=== PATIENT | male | born 1935 | race Asian ===

== ENCOUNTER 2024-05-11 13:29 | Inpatient (IN) | payer OTHER, MEDICARE ==
[~2024-05-11] VITALS: Ht 167.6 cm; Wt 64.0 kg
[2024-05-11 13:36] VITALS: PULSE 51; RESP 22; TEMP 98.3; O2SAT 100
[2024-05-11 14:29] LABS: BASOPHILS % (AUTO) 0.9 % (0.0-2.0); EOSINOPHILS # (AUTO) 0.1 K/uL (0.0-0.4); EOSINOPHILS % (AUTO) 1.9 % (0.0-4.0); HEMATOCRIT 30.6 % (36-54); HEMOGLOBIN 10.9 g/dL (14.0-18.0); LYMPHOCYTES # (AUTO) 0.5 K/uL (1.0-5.5); LYMPHOCYTES % (AUTO) 11.1 % (20.5-51.5); MEAN CORPUSCULAR HEMOGLOBIN 31 pg (27-31); MEAN CORPUSCULAR HGB CONC 36 % (32-36); MEAN CORPUSCULAR VOLUME 87 fL (79.0-98.0); MONOCYTES # (AUTO) 0.5 K/uL (0.0-1.0); MONOCYTES % (AUTO) 11.7 % (1.7-9.3); NEUTROPHILS % (AUTO) 74.4 % (40.0-70.0); PLATELET COUNT (AUTO) 145 K/uL (130-430); RED BLOOD CELL COUNT(AUTO) 3.52 MIL/uL (4.2-6.2); WHITE BLOOD COUNT (AUTO) 4.1 K/uL (4.8-10.8)
[2024-05-11 14:44] LABS: ALANINE AMINOTRANSFERASE 27 U/L (12-78); ALBUMIN 3.1 g/dL (3.4-4.8); ANION GAP 6 (5-15); ASPARTATE AMINOTRANSFERASE 37 U/L (10-37); BILIRUBIN,DIRECT 0.1 mg/dL (0.0-0.3); CALCIUM 8.2 mg/dL (8.4-11.0); CARBON DIOXIDE 28 mmol/L (23-29); CHLORIDE 91 mmol/L (98-107); CREATININE 1.48 mg/dL (0.55-1.30); GLUCOSE 180 mg/dL (74-106); LIPASE 46 U/L (16-77); POTASSIUM 3.7 mmol/L (3.5-5.1); SODIUM SERUM 125 mmol/L (136-145); TOTAL BILIRUBIN 0.3 mg/dL (0.0-1.0); UREA NITROGEN, BLOOD 32 mg/dL (8-21)
[2024-05-11 15:07] LABS: INR 1.1 (0.80-1.20)
[2024-05-11] MEDS: NS 1000 ML IV.SOLN IV ONE (15:39)
[2024-05-11 16:09] LABS: BILIRUBIN,URINE NEGATIVE (NEGATIVE); BLOOD, URINE NEGATIVE (NEGATIVE); CLARITY/URINE CLEAR (CLEAR); COLOR,URINE YELLOW (YELLOW); GLUCOSE,URINE NEGATIVE (NEGATIVE); KETONES,URINE NEGATIVE (NEGATIVE); LEUKOCYTE ESTERASE ,URINE NEGATIVE (NEGATIVE); NITRITE, URINE NEGATIVE (NEGATIVE); PROTEIN URINE NEGATIVE (NEGATIVE); UROBILINOGEN,URINE 0.2 (0.2-1.0)
[2024-05-11] MEDS ORDERED: LORazepam 2 MG/ML VIAL IVP PRN (16:30)
[2024-05-11] MEDS ORDERED: MUPIROCIN 2% TOPICAL OINTMENT 22 GM NS PRN ×2 (16:30→20:00)
[2024-05-11] MEDS ORDERED: MORPHINE 2 MG/ML INJ. SYRINGE IVP PRN ×2 (16:30)
[2024-05-11] MEDS ORDERED: DOCUSATE SODIUM 100 MG CAPSULE PO PRN (16:30)
[2024-05-11] MEDS ORDERED: ZOLPIDEM TARTRATE 5 MG TABLET PO PRN (16:30)
[2024-05-11] MEDS ORDERED: ACETAMINOPHEN 500 MG TABLET PO PRN ×3 (16:30)
[2024-05-11] MEDS ORDERED: MAGNESIUM SULFATE 50 ML IV PRN (16:30)
[2024-05-11] MEDS ORDERED: POTASSIUM CHLORIDE 20 MEQ TABLET.ER PO PRN (16:30)
[2024-05-11] MEDS: D5NS 1,000 ML IV SCH (23:14)
[2024-05-11] MEDS ORDERED: HEPARIN SODIUM,PORCINE 5,000 UNITS/ML VIAL ONE (23:24)
[2024-05-11] MEDS: HEPARIN SODIUM,PORCINE 5,000 UNITS/ML VIAL SUBCUT SCH (23:27)
[2024-05-12] VITALS (7 sets, daily range): BP systolic 136–159; PULSE 55–81; RESP 16–18; TEMP 97.5–98.2; O2SAT 100
[2024-05-12] MEDS: HEPARIN SODIUM,PORCINE 5,000 UNITS/ML VIAL SUBCUT SCH (09:00)
[2024-05-12] MEDS ORDERED: DEXTROSE 50% JECT 50 ML DISP.SYRIN IVP PRN (10:00)
[2024-05-12 10:10] LABS: BASOPHILS % (AUTO) 0.7 % (0.0-2.0); EOSINOPHILS # (AUTO) 0.2 K/uL (0.0-0.4); EOSINOPHILS % (AUTO) 4.7 % (0.0-4.0); HEMOGLOBIN 12.7 g/dL (14.0-18.0); LYMPHOCYTES # (AUTO) 0.6 K/uL (1.0-5.5); LYMPHOCYTES % (AUTO) 11.5 % (20.5-51.5); MEAN CORPUSCULAR HEMOGLOBIN 30 pg (27-31); MEAN CORPUSCULAR HGB CONC 34 % (32-36); MEAN CORPUSCULAR VOLUME 88 fL (79.0-98.0); MONOCYTES # (AUTO) 0.7 K/uL (0.0-1.0); NEUTROPHILS # (AUTO) 3.4 K/uL (1.8-7.7); NEUTROPHILS % (AUTO) 69.1 % (40.0-70.0); PLATELET COUNT (AUTO) 174 K/uL (130-430); RED BLOOD CELL COUNT(AUTO) 4.22 MIL/uL (4.2-6.2); WHITE BLOOD COUNT (AUTO) 4.9 K/uL (4.8-10.8)
[2024-05-12 10:32] LABS: ALANINE AMINOTRANSFERASE 31 U/L (12-78); ALBUMIN 3.1 g/dL (3.4-4.8); ANION GAP 7 (5-15); ASPARTATE AMINOTRANSFERASE 42 U/L (10-37); CALCIUM 8.4 mg/dL (8.4-11.0); CARBON DIOXIDE 28 mmol/L (23-29); CHLORIDE 99 mmol/L (98-107); CREATININE 0.92 mg/dL (0.55-1.30); GLUCOSE 142 mg/dL (74-106); POTASSIUM 3.5 mmol/L (3.5-5.1); SODIUM SERUM 134 mmol/L (136-145); THYROID STIMULATING HORMONE 0.83 uIu/mL (0.34-4.82); TOTAL BILIRUBIN 0.4 mg/dL (0.0-1.0); TOTAL PROTEIN, SERUM 6.1 g/dL (6.4-8.3); UREA NITROGEN, BLOOD 16 mg/dL (8-21)
[2024-05-12] MEDS: GOLYTELY / COLYTE SOLUTION 4 LITERS PO ONE (11:39)
[2024-05-12] MEDS: BISACODYL 5 MG TABLET.DR (DULCOLAX) PO ONE (18:18)
[2024-05-12] MEDS: INSULIN LISPRO SLIDING SCALE 100 UNITS/ML, 3 ML VIAL (humaLOG) SUBCUT PRN (18:53)
[2024-05-13] VITALS: BP_SYST 121; PULSE 72; RESP 18; TEMP 97.6; O2SAT 100
[2024-05-13] MEDS: ONDANSETRON HCL 4 MG/2 ML VIAL IVP PRN (03:59)
[2024-05-13] MEDS: ONDANSETRON HCL 4 MG/2 ML VIAL ONE (04:02)
[2024-05-13 05:45] LABS: BASOPHILS % (AUTO) 0.3 % (0.0-2.0); EOSINOPHILS % (AUTO) 0.2 % (0.0-4.0); HEMATOCRIT 40.2 % (36-54); HEMOGLOBIN 13.8 g/dL (14.0-18.0); LYMPHOCYTES # (AUTO) 0.5 K/uL (1.0-5.5); LYMPHOCYTES % (AUTO) 4.1 % (20.5-51.5); MEAN CORPUSCULAR HEMOGLOBIN 30 pg (27-31); MEAN CORPUSCULAR HGB CONC 34 % (32-36); MEAN CORPUSCULAR VOLUME 88 fL (79.0-98.0); MONOCYTES # (AUTO) 0.5 K/uL (0.0-1.0); MONOCYTES % (AUTO) 4.4 % (1.7-9.3); NEUTROPHILS # (AUTO) 11.1 K/uL (1.8-7.7); PLATELET COUNT (AUTO) 239 K/uL (130-430); RED BLOOD CELL COUNT(AUTO) 4.56 MIL/uL (4.2-6.2); RED CELL DISTRIBUTION WIDTH 13.1 % (9.0-15.0); WHITE BLOOD COUNT (AUTO) 12.2 K/uL (4.8-10.8)
[2024-05-13 06:01] LABS: INR 1.1 (0.80-1.20); PROTHROMBIN TIME 10.9 SECS (9.5-12.5)
[2024-05-13 06:39] LABS: ALANINE AMINOTRANSFERASE 30 U/L (12-78); ALBUMIN 3.4 g/dL (3.4-4.8); ANION GAP 11 (5-15); ASPARTATE AMINOTRANSFERASE 45 U/L (10-37); CALCIUM 8.8 mg/dL (8.4-11.0); CARBON DIOXIDE 25 mmol/L (23-29); CHLORIDE 96 mmol/L (98-107); CREATININE 1.09 mg/dL (0.55-1.30); GLUCOSE 162 mg/dL (74-106); SODIUM SERUM 132 mmol/L (136-145); TOTAL BILIRUBIN 0.9 mg/dL (0.0-1.0); TOTAL PROTEIN, SERUM 6.5 g/dL (6.4-8.3); UREA NITROGEN, BLOOD 14 mg/dL (8-21)
[2024-05-13 08:04] VITALS: O2SAT 100
[2024-05-13] MEDS: POTASSIUM CHLORIDE 20 MEQ TABLET.ER PO ONE (09:53)
[2024-05-13] MEDS: MAGNESIUM SULFATE 50 ML IV ONE (10:04)
[2024-05-13 11:52] VITALS: BP_SYST 108; PULSE 51; RESP 16; TEMP 97.7; O2SAT 97
[2024-05-13] MEDS: METOCLOPRAMIDE HCL 10 MG/2 ML VIAL IVP ONE (16:44)
[2024-05-13] MEDS: KCL 20 mEq in 100 mL (PREMIX) 100 ML IV ONE (16:45)
[2024-05-13] MEDS: BISACODYL 5 MG TABLET.DR (DULCOLAX) PO ONE (17:49)
[2024-05-13] MEDS ORDERED: GOLYTELY / COLYTE SOLUTION 4 LITERS PO ONE (18:00)
[2024-05-13 18:37] VITALS: BP_SYST 115; PULSE 57; RESP 17; TEMP 98.4; O2SAT 97
[2024-05-13 18:50] LABS: ANION GAP 10 (5-15); CALCIUM 8.5 mg/dL (8.4-11.0); CARBON DIOXIDE 26 mmol/L (23-29); CHLORIDE 96 mmol/L (98-107); CREATININE 1.68 mg/dL (0.55-1.30); GLUCOSE 113 mg/dL (74-106); POTASSIUM 3.9 mmol/L (3.5-5.1); SODIUM SERUM 132 mmol/L (136-145); UREA NITROGEN, BLOOD 27 mg/dL (8-21)
[2024-05-13 18:52] LABS: HEMATOCRIT 44.7 % (36-54); HEMOGLOBIN 15.2 g/dL (14.0-18.0); MEAN CORPUSCULAR HEMOGLOBIN 30 pg (27-31); MEAN CORPUSCULAR HGB CONC 34 % (32-36); MEAN CORPUSCULAR VOLUME 88 fL (79.0-98.0); PLATELET COUNT (AUTO) 236 K/uL (130-430); RED BLOOD CELL COUNT(AUTO) 5.08 MIL/uL (4.2-6.2); RED CELL DISTRIBUTION WIDTH 13.3 % (9.0-15.0); WHITE BLOOD COUNT (AUTO) 14.8 K/uL (4.8-10.8)
[2024-05-13] MEDS: PANTOPRAZOLE SODIUM 40 MG/VIAL (PROTONIX) IVP ONE (19:03)
[2024-05-13 19:28] LABS: BAND % (MANUAL) 25 % (0-6); BASOPHILS % (MANUAL) 0 % (0-2); EOSINOPHILS % (MANUAL) 0 % (0-7); LYMPHOCYTES % (MANUAL) 6 % (20-46); MONOCYTES % (MANUAL) 4 % (0-11); PLATELET ESTIMATE ADEQUATE (ADEQUATE)
[2024-05-13] MEDS ORDERED: CEFEPIME 1 GM in D5W 50 ML IV SCH (19:45)
[2024-05-13 19:58] LABS: HEMOGLOBIN 13.9 g/dL (14.0-18.0); LYMPHOCYTES # (AUTO) 0.3 K/uL (1.0-5.5); LYMPHOCYTES % (AUTO) 2.4 % (20.5-51.5); MEAN CORPUSCULAR HEMOGLOBIN 30 pg (27-31); MEAN CORPUSCULAR HGB CONC 35 % (32-36); MEAN CORPUSCULAR VOLUME 88 fL (79.0-98.0); MONOCYTES # (AUTO) 1.1 K/uL (0.0-1.0); MONOCYTES % (AUTO) 9.3 % (1.7-9.3); NEUTROPHILS # (AUTO) 10.1 K/uL (1.8-7.7); NEUTROPHILS % (AUTO) 88.3 % (40.0-70.0); PLATELET COUNT (AUTO) 179 K/uL (130-430); RED BLOOD CELL COUNT(AUTO) 4.57 MIL/uL (4.2-6.2); RED CELL DISTRIBUTION WIDTH 13.3 % (9.0-15.0); WHITE BLOOD COUNT (AUTO) 11.4 K/uL (4.8-10.8)
[2024-05-13 20:00] VITALS: O2SAT 100
[2024-05-13 20:15] VITALS: BP_SYST 140; PULSE 60; RESP 16; TEMP 100.4
[2024-05-13 20:28] LABS: ANION GAP 9 (5-15); CALCIUM 8.3 mg/dL (8.4-11.0); CARBON DIOXIDE 27 mmol/L (23-29); CHLORIDE 99 mmol/L (98-107); CREATININE 1.59 mg/dL (0.55-1.30); GLUCOSE 135 mg/dL (74-106); SODIUM SERUM 135 mmol/L (136-145); UREA NITROGEN, BLOOD 27 mg/dL (8-21)
[2024-05-13] MEDS ORDERED: CEFEPIME 2 GM in D5W 100 ML IV SCH (21:00)
[2024-05-13] MEDS: METOCLOPRAMIDE HCL 10 MG/2 ML VIAL IVP SCH (22:50)
[2024-05-13] MEDS: CEFEPIME 1 GM in D5W 50 ML IV SCH (22:50)
[2024-05-13] MEDS: PANTOPRAZOLE SODIUM 40 MG/VIAL (PROTONIX) IVP SCH (22:51)
[2024-05-14] VITALS: BP_SYST 106; PULSE 60; RESP 18; TEMP 101.4; O2SAT 97
[2024-05-14] MEDS: ACETAMINOPHEN I.V. 1000 MG 100 ML IV ONE ×2 (01:57→02:08)
[2024-05-14 05:32] LABS: BASOPHILS % (AUTO) 0.1 % (0.0-2.0); HEMATOCRIT 37.3 % (36-54); HEMOGLOBIN 12.8 g/dL (14.0-18.0); LYMPHOCYTES # (AUTO) 0.5 K/uL (1.0-5.5); LYMPHOCYTES % (AUTO) 5.1 % (20.5-51.5); MEAN CORPUSCULAR HEMOGLOBIN 30 pg (27-31); MEAN CORPUSCULAR HGB CONC 34 % (32-36); MEAN CORPUSCULAR VOLUME 88 fL (79.0-98.0); MONOCYTES # (AUTO) 1.2 K/uL (0.0-1.0); MONOCYTES % (AUTO) 12.3 % (1.7-9.3); NEUTROPHILS # (AUTO) 8.1 K/uL (1.8-7.7); NEUTROPHILS % (AUTO) 82.5 % (40.0-70.0); PLATELET COUNT (AUTO) 179 K/uL (130-430); RED BLOOD CELL COUNT(AUTO) 4.23 MIL/uL (4.2-6.2); RED CELL DISTRIBUTION WIDTH 13.4 % (9.0-15.0); WHITE BLOOD COUNT (AUTO) 9.9 K/uL (4.8-10.8)
[2024-05-14 05:46] LABS: INR 1.2 (0.80-1.20); PROTHROMBIN TIME 12.1 SECS (9.5-12.5)
[2024-05-14 06:02] LABS: ANION GAP 11 (5-15); CARBON DIOXIDE 25 mmol/L (23-29); CHLORIDE 100 mmol/L (98-107); CREATININE 1.54 mg/dL (0.55-1.30); GLUCOSE 133 mg/dL (74-106); SODIUM SERUM 136 mmol/L (136-145); UREA NITROGEN, BLOOD 28 mg/dL (8-21)
[2024-05-14 08:46] VITALS: BP_SYST 139; PULSE 50; RESP 16; TEMP 98.2; O2SAT 94
[2024-05-14 08:48] VITALS: O2SAT 94
[2024-05-14] MEDS: KCL 20 mEq in 100 mL (PREMIX) 100 ML IV ONE (09:15)
[2024-05-14 12:45] VITALS: BP_SYST 140; PULSE 52; RESP 16; TEMP 97.8; O2SAT 97
[2024-05-14] MEDS: BISACODYL 5 MG TABLET.DR (DULCOLAX) PO ONE (16:13)
[2024-05-14 16:40] VITALS: BP_SYST 145; PULSE 59; RESP 16; TEMP 98.6; O2SAT 98
[2024-05-14] MEDS: GOLYTELY / COLYTE SOLUTION 4 LITERS PO ONE (18:04)
[2024-05-14 20:00] VITALS: O2SAT 98
[2024-05-15 01:22] VITALS: BP_SYST 133; PULSE 60; RESP 17; TEMP 97.1; O2SAT 96
[2024-05-15 05:41] LABS: BASOPHILS % (AUTO) 0.2 % (0.0-2.0); EOSINOPHILS % (AUTO) 0.1 % (0.0-4.0); HEMATOCRIT 38.1 % (36-54); LYMPHOCYTES # (AUTO) 0.6 K/uL (1.0-5.5); LYMPHOCYTES % (AUTO) 7.4 % (20.5-51.5); MEAN CORPUSCULAR HEMOGLOBIN 30 pg (27-31); MEAN CORPUSCULAR HGB CONC 34 % (32-36); MEAN CORPUSCULAR VOLUME 89 fL (79.0-98.0); MONOCYTES % (AUTO) 12.4 % (1.7-9.3); NEUTROPHILS # (AUTO) 6.7 K/uL (1.8-7.7); NEUTROPHILS % (AUTO) 79.9 % (40.0-70.0); PLATELET COUNT (AUTO) 148 K/uL (130-430); RED BLOOD CELL COUNT(AUTO) 4.29 MIL/uL (4.2-6.2); RED CELL DISTRIBUTION WIDTH 13.4 % (9.0-15.0); WHITE BLOOD COUNT (AUTO) 8.4 K/uL (4.8-10.8)
[2024-05-15 06:00] LABS: PROTHROMBIN TIME 10.7 SECS (9.5-12.5)
[2024-05-15 06:08] LABS: ANION GAP 8 (5-15); CARBON DIOXIDE 28 mmol/L (23-29); CHLORIDE 100 mmol/L (98-107); CREATININE 1.02 mg/dL (0.55-1.30); GLUCOSE 121 mg/dL (74-106); SODIUM SERUM 136 mmol/L (136-145); UREA NITROGEN, BLOOD 20 mg/dL (8-21)
[2024-05-15 06:30] LABS: POTASSIUM 2.1 mmol/L (3.5-5.1)
[2024-05-15 08:19] VITALS: BP_SYST 155; PULSE 62; RESP 16; TEMP 97.6; O2SAT 98
[2024-05-15] MEDS: KCL 20 mEq in 100 mL (PREMIX) 200 ML IV ONE (08:38)
[2024-05-15 11:40] VITALS: BP_SYST 142; PULSE 65; RESP 18; TEMP 98.2; O2SAT 99
[2024-05-15] MEDS: GOLYTELY / COLYTE SOLUTION 4 LITERS PO ONE (11:41)
[2024-05-15] MEDS ORDERED: hydrALAZINE HCL 20 MG/ML VIAL IVP PRN (13:30)
[2024-05-15] MEDS: POTASSIUM CHLORIDE 60 MEQ in NS 500 ML IV ONE (14:21)
[2024-05-15 15:45] VITALS: BP_SYST 151; PULSE 60; RESP 18; TEMP 99; O2SAT 96
[2024-05-15 19:00] VITALS: O2SAT 95
[2024-05-15 22:00] VITALS: BP_SYST 140; PULSE 70; RESP 17; TEMP 98.2; O2SAT 95
[2024-05-15] MEDS: HEPARIN SODIUM,PORCINE 5,000 UNITS/ML VIAL SUBCUT SCH (22:15)
[2024-05-16 04:00] VITALS: BP_SYST 151; PULSE 70; RESP 23; TEMP 98.3; O2SAT 97
[2024-05-16 06:56] LABS: BASOPHILS % (AUTO) 0.4 % (0.0-2.0); EOSINOPHILS # (AUTO) 0.3 K/uL (0.0-0.4); EOSINOPHILS % (AUTO) 3.4 % (0.0-4.0); HEMATOCRIT 34.3 % (36-54); HEMOGLOBIN 11.8 g/dL (14.0-18.0); LYMPHOCYTES # (AUTO) 0.6 K/uL (1.0-5.5); LYMPHOCYTES % (AUTO) 7.8 % (20.5-51.5); MEAN CORPUSCULAR HEMOGLOBIN 30 pg (27-31); MEAN CORPUSCULAR HGB CONC 34 % (32-36); MEAN CORPUSCULAR VOLUME 88 fL (79.0-98.0); MONOCYTES # (AUTO) 0.9 K/uL (0.0-1.0); MONOCYTES % (AUTO) 11.2 % (1.7-9.3); NEUTROPHILS # (AUTO) 6.1 K/uL (1.8-7.7); NEUTROPHILS % (AUTO) 77.2 % (40.0-70.0); PLATELET COUNT (AUTO) 120 K/uL (130-430); RED BLOOD CELL COUNT(AUTO) 3.89 MIL/uL (4.2-6.2); WHITE BLOOD COUNT (AUTO) 7.9 K/uL (4.8-10.8)
[2024-05-16 07:06] LABS: ANION GAP 6 (5-15); CARBON DIOXIDE 28 mmol/L (23-29); CHLORIDE 102 mmol/L (98-107); GLUCOSE 140 mg/dL (74-106); SODIUM SERUM 136 mmol/L (136-145); UREA NITROGEN, BLOOD 10 mg/dL (8-21)
[2024-05-16 07:08] LABS: POTASSIUM 2.8 mmol/L (3.5-5.1)
[2024-05-16 08:07] VITALS: BP_SYST 151; PULSE 72; RESP 18; TEMP 98; O2SAT 100
[2024-05-16 11:04] VITALS: BP_SYST 149; PULSE 79; RESP 18; TEMP 97.7; O2SAT 98
[2024-05-16] MEDS: POTASSIUM CHLORIDE 40 MEQ, LIDOCAINE JECT 2% PF 100 MG 75 MG in NS 250 ML IV ONE (12:06)
[2024-05-16 16:06] VITALS: BP_SYST 144; PULSE 79; RESP 17; TEMP 97.5; O2SAT 98
[2024-05-16 20:00] VITALS: BP_SYST 138; PULSE 75; RESP 18; TEMP 97.5; O2SAT 96
[2024-05-17 01:00] VITALS: BP_SYST 141; PULSE 75; RESP 20; TEMP 98.3; O2SAT 95
[2024-05-17 06:44] LABS: BASOPHILS % (AUTO) 0.3 % (0.0-2.0); EOSINOPHILS # (AUTO) 0.2 K/uL (0.0-0.4); EOSINOPHILS % (AUTO) 3.1 % (0.0-4.0); HEMATOCRIT 34.2 % (36-54); HEMOGLOBIN 11.8 g/dL (14.0-18.0); LYMPHOCYTES # (AUTO) 0.8 K/uL (1.0-5.5); LYMPHOCYTES % (AUTO) 10.9 % (20.5-51.5); MEAN CORPUSCULAR HEMOGLOBIN 31 pg (27-31); MEAN CORPUSCULAR HGB CONC 35 % (32-36); MEAN CORPUSCULAR VOLUME 89 fL (79.0-98.0); MONOCYTES # (AUTO) 0.9 K/uL (0.0-1.0); MONOCYTES % (AUTO) 12.1 % (1.7-9.3); NEUTROPHILS # (AUTO) 5.5 K/uL (1.8-7.7); NEUTROPHILS % (AUTO) 73.6 % (40.0-70.0); PLATELET COUNT (AUTO) 120 K/uL (130-430); RED BLOOD CELL COUNT(AUTO) 3.86 MIL/uL (4.2-6.2); RED CELL DISTRIBUTION WIDTH 13.1 % (9.0-15.0); WHITE BLOOD COUNT (AUTO) 7.5 K/uL (4.8-10.8)
[2024-05-17 07:13] LABS: ANION GAP 6 (5-15); CALCIUM 8.1 mg/dL (8.4-11.0); CARBON DIOXIDE 28 mmol/L (23-29); CHLORIDE 102 mmol/L (98-107); CREATININE 0.81 mg/dL (0.55-1.30); GLUCOSE 85 mg/dL (74-106); POTASSIUM 3.3 mmol/L (3.5-5.1); SODIUM SERUM 136 mmol/L (136-145); UREA NITROGEN, BLOOD 13 mg/dL (8-21)
[2024-05-17 08:00] VITALS: BP_SYST 141; PULSE 95; RESP 17; TEMP 97.8; O2SAT 100
[2024-05-17 08:02] VITALS: O2SAT 100
[2024-05-17 11:05] VITALS: BP_SYST 134; PULSE 97; RESP 15; TEMP 97.5; O2SAT 96
[2024-05-17 16:30] VITALS: BP_SYST 129; PULSE 88; RESP 16; TEMP 98.3; O2SAT 95
[2024-05-17] MEDS: GOLYTELY / COLYTE SOLUTION 4 LITERS PO ONE (16:55)
[2024-05-17] MEDS: BISACODYL 5 MG TABLET.DR (DULCOLAX) PO ONE (16:55)
[2024-05-17 20:00] VITALS: O2SAT 98
[2024-05-17] MEDS: CEFEPIME 1 GM/VIAL (MAXIPIME) ONE (21:00)
[2024-05-18] VITALS (7 sets, daily range): BP systolic 132–169; PULSE 64–85; RESP 17–19; TEMP 97.6–98.9; O2SAT 97–99
[2024-05-18 05:34] LABS: BASOPHILS % (AUTO) 0.3 % (0.0-2.0); EOSINOPHILS # (AUTO) 0.5 K/uL (0.0-0.4); EOSINOPHILS % (AUTO) 5.5 % (0.0-4.0); HEMATOCRIT 36.1 % (36-54); HEMOGLOBIN 12.5 g/dL (14.0-18.0); LYMPHOCYTES % (AUTO) 11.8 % (20.5-51.5); MEAN CORPUSCULAR HEMOGLOBIN 30 pg (27-31); MEAN CORPUSCULAR HGB CONC 35 % (32-36); MEAN CORPUSCULAR VOLUME 87 fL (79.0-98.0); MONOCYTES # (AUTO) 1.1 K/uL (0.0-1.0); MONOCYTES % (AUTO) 13.2 % (1.7-9.3); NEUTROPHILS # (AUTO) 5.8 K/uL (1.8-7.7); NEUTROPHILS % (AUTO) 69.2 % (40.0-70.0); PLATELET COUNT (AUTO) 134 K/uL (130-430); RED BLOOD CELL COUNT(AUTO) 4.13 MIL/uL (4.2-6.2); RED CELL DISTRIBUTION WIDTH 12.9 % (9.0-15.0); WHITE BLOOD COUNT (AUTO) 8.5 K/uL (4.8-10.8)
[2024-05-18 05:52] LABS: ANION GAP 8 (5-15); CALCIUM 7.5 mg/dL (8.4-11.0); CARBON DIOXIDE 28 mmol/L (23-29); CHLORIDE 102 mmol/L (98-107); CREATININE 0.72 mg/dL (0.55-1.30); GLUCOSE 123 mg/dL (74-106); SODIUM SERUM 138 mmol/L (136-145); UREA NITROGEN, BLOOD 9 mg/dL (8-21)
[2024-05-18] MEDS: fentaNYL CITRATE/PF 100 MCG/2 ML AMP ONE (07:51)
[2024-05-18] MEDS: MIDAZOLAM HCL 5 MG/5 ML VIAL ONE (07:51)
[2024-05-18 07:59] LABS: POTASSIUM 2.2 mmol/L (3.5-5.1)
[2024-05-18] MEDS: MAGNESIUM SULFATE 50 ML IV ONE ×2 (09:08→22:22)
[2024-05-18] MEDS: POTASSIUM CHLORIDE 40 MEQ, LIDOCAINE JECT 2% PF 100 MG 50 MG in NS 250 ML IV ONE (09:10)
[2024-05-18] MEDS: POTASSIUM CHLORIDE 40 MEQ in D5W 250 ML IV ONE (17:08)
[2024-05-18] MEDS: KCL 20 mEq in 100 mL (PREMIX) 100 ML IV SCH (22:16)
[2024-05-18 23:09] LABS: ALANINE AMINOTRANSFERASE 36 U/L (12-78); ALBUMIN 2.3 g/dL (3.4-4.8); ANION GAP 8 (5-15); ASPARTATE AMINOTRANSFERASE 39 U/L (10-37); CALCIUM 8.1 mg/dL (8.4-11.0); CARBON DIOXIDE 26 mmol/L (23-29); CHLORIDE 99 mmol/L (98-107); CREATININE 0.67 mg/dL (0.55-1.30); GLUCOSE 166 mg/dL (74-106); POTASSIUM 3.1 mmol/L (3.5-5.1); SODIUM SERUM 133 mmol/L (136-145); TOTAL BILIRUBIN 0.6 mg/dL (0.0-1.0); TOTAL PROTEIN, SERUM 5.8 g/dL (6.4-8.3); UREA NITROGEN, BLOOD 5 mg/dL (8-21)
[2024-05-19 00:41] VITALS: BP_SYST 135; PULSE 81; RESP 15; TEMP 97.8; O2SAT 98
[2024-05-19 06:09] LABS: ANION GAP 7 (5-15); BASOPHILS # (AUTO) 0.1 K/uL (0.0-0.2); BASOPHILS % (AUTO) 0.7 % (0.0-2.0); CARBON DIOXIDE 27 mmol/L (23-29); CHLORIDE 101 mmol/L (98-107); CREATININE 0.65 mg/dL (0.55-1.30); EOSINOPHILS # (AUTO) 0.6 K/uL (0.0-0.4); EOSINOPHILS % (AUTO) 8.3 % (0.0-4.0); GLUCOSE 112 mg/dL (74-106); HEMATOCRIT 37.2 % (36-54); HEMOGLOBIN 12.7 g/dL (14.0-18.0); LYMPHOCYTES # (AUTO) 0.9 K/uL (1.0-5.5); LYMPHOCYTES % (AUTO) 12.4 % (20.5-51.5); MEAN CORPUSCULAR HEMOGLOBIN 30 pg (27-31); MEAN CORPUSCULAR HGB CONC 34 % (32-36); MEAN CORPUSCULAR VOLUME 87 fL (79.0-98.0); MONOCYTES # (AUTO) 1.1 K/uL (0.0-1.0); MONOCYTES % (AUTO) 15.8 % (1.7-9.3); NEUTROPHILS # (AUTO) 4.5 K/uL (1.8-7.7); NEUTROPHILS % (AUTO) 62.8 % (40.0-70.0); PLATELET COUNT (AUTO) 144 K/uL (130-430); POTASSIUM 3.3 mmol/L (3.5-5.1); RED BLOOD CELL COUNT(AUTO) 4.27 MIL/uL (4.2-6.2); RED CELL DISTRIBUTION WIDTH 12.6 % (9.0-15.0); SODIUM SERUM 135 mmol/L (136-145); UREA NITROGEN, BLOOD 4 mg/dL (8-21); WHITE BLOOD COUNT (AUTO) 7.1 K/uL (4.8-10.8)
[2024-05-19 08:00] VITALS: BP_SYST 146; PULSE 96; RESP 17; TEMP 97.3; O2SAT 98; O2SAT 99
[2024-05-19] MEDS: SODIUM PHOSPHATE,MONO-DIBASIC 133 ML ENEMA RC ONE (09:04)
[2024-05-19] MEDS ORDERED: SIMETHICONE 40 MG/0.6 ML ML ONE (09:36)
[2024-05-19] MEDS ORDERED: fentaNYL CITRATE/PF 100 MCG/2 ML AMP ONE (09:37)
[2024-05-19] MEDS ORDERED: MIDAZOLAM HCL 5 MG/5 ML VIAL ONE (09:37)
[2024-05-19] MEDS: POTASSIUM CHLORIDE 20 MEQ TABLET.ER PO ONE (11:53)
[2024-05-19 16:07] VITALS: BP_SYST 141; PULSE 96; RESP 17; TEMP 97.8; O2SAT 99
[2024-05-19] MEDS: metroNIDAZOLE 500 MG TABLET PO ONE (16:50)
[2024-05-19 19:55] VITALS: BP_SYST 130; PULSE 106; RESP 16; TEMP 98.2; O2SAT 97
[2024-05-19] MEDS ORDERED: metroNIDAZOLE 500 MG TABLET PO SCH (22:00)
== END 2024-05-19 20:50 | DRG 388 ==
LOC: SED 13:29 → SMU 21:04 → STU 05-18 09:45
PROVIDERS: ADMIT General Practice; ATTEND General Practice
PROC: 0DH67UZ Insertion of Feeding Device into Stomach, Via Natural or Artificial Opening (ICD-10-PCS; 2024-05-11)
PROC: 0DBQ8ZX Excision of Anus, Via Natural or Artificial Opening Endoscopic, Diagnostic (ICD-10-PCS; 2024-05-19)
PROC: 0DBE8ZX Excision of Large Intestine, Via Natural or Artificial Opening Endoscopic, Diagnostic (ICD-10-PCS; principal; 2024-05-19 11:00)
DX: K56.41 Fecal impaction (principal); N17.0 Acute kidney failure with tubular necrosis; E87.1 Hypo-osmolality and hyponatremia; K56.0 Paralytic ileus; E44.0 Moderate protein-calorie malnutrition; K52.89 Other specified noninfective gastroenteritis and colitis; E86.0 Dehydration; E11.65 Type 2 diabetes mellitus with hyperglycemia; E78.5 Hyperlipidemia, unspecified; I10 Essential (primary) hypertension; E83.42 Hypomagnesemia; E86.9 Volume depletion, unspecified; M48.061 Spinal stenosis, lumbar region without neurogenic claudication; Z95.0 Presence of cardiac pacemaker; Z79.899 Other long term (current) drug therapy; Z68.22 Body mass index [BMI] 22.0-22.9, adult
CPT/HCPCS: 36415; 45380; 71045; 74018; 80048; 80053; 80076; 81001; 81003; 82272; 82948; 83037; 83605; 83690; 83735; 84132; 84443; 85007; 85025; 85027; 85610; 85730; 87040; 87086; 88305; 93005; 96361; 97110-GP; 97116-GP; 97530-GP; 99285; C9113; G0378; J0131; J0692; J1644; J2250; J2405; J2765; J3010; J3475; J3480; J7040; J7050; J7060